=== PATIENT | female | born 1980 | race Caucasian/White ===

== ENCOUNTER 2017-07-27 11:18 | Inpatient (IN) | payer MEDICAID ==
--- NOTE | 2017-07-27 11:36 | Emergency Department Record ---
History of Present Illness - General Chief Complaint: Overdose Stated Complaint: OVERDOSE Time Seen by Provider: 07/27/17 11:21 Source: Patient, Family Mode of Arrival: Ambulatory Limitations: No limitations - History of Present Illness Initial Comments: 37 yo female presents stating she is in withdrawal. She was dropped off by her father who promptly walked out stating he is through with her. He expressed to the help desk rep she is a heroin addict and he can no longer help her. He states she has not had heroin in two days. She admits to drinking alcohol today as well. She states she has been on heroin for 4 years on and off. She has been in rehabilitation in the past. She currently denies suicidal thoughts. She currently denies other drunks. She states she hurt her ankle a couple days ago and it hurts. Complaint: Other (Withdrawal) -: Hour(s) - Jerome Coma Scale Eye Response: (4) Open spontaneously Motor Response: (6) Obeys commands Verbal Response: (5) Oriented Jerome Total: 15 - Detail Intent: Other (Denies suicidal ideations or intentional overdose) How Overdose Was Discovered: Called family/friend (Brought by father due to "acting out") Context: Accidental Overdose: Other (Wanted to sleep, did not sleep last night due to withdrawal) Context: Intentional Overdose: Drug/ETOH problems Associated Symptoms: Other (Chronic substance abuse) Treatments Prior to Arrival: None - Related Data Allergies Allergy/AdvReac Type Severity Reaction Status Date / Time naproxen [From Naprosyn] Allergy HIVES Verified 08/01/15 12:20 Review of Systems Constitutional: Denies: Chills, Fever, Malaise Eyes: Denies: Eye discharge, Eye pain, Photophobia, Vision change ENT: Denies: Congestion, Throat pain Respiratory: Denies: Cough, Dyspnea, Hemoptysis, Stridor, Wheezes Cardiovascular: Denies: Chest pain, Palpitations, Syncope Endocrine: Denies: Fatigue Gastrointestinal: Reports: Nausea. Denies: Diarrhea, Vomiting Genitourinary: Denies: Dysuria, Urgency Musculoskeletal: Reports: As per HPI, Arthralgia, Myalgia. Denies: Back pain Skin: Denies: Bruising, Change in color, Rash Neurological: Denies: Confusion, Headache, Numbness, Weakness Psychiatric: Reports: Anxiety. Denies: Homicidal thoughts, Suicidal thoughts Hematological/Lymphatic: Denies: Blood Clots, Easy bleeding, Easy bruising, Swollen glands Past Medical History - SOCIAL HISTORY Smoking Status: Current every day smoker - RESPIRATORY Hx Respiratory Disorders: No - CARDIOVASCULAR Comment:: murmur - NEURO Hx Neuro Disorders: No - GI Hx GI Disorders: No - Hx Genitourinary Disorders: No - ENDOCRINE Hx Diabetes: No Hx Thyroid Disease: Yes (benign cyst) - MUSCULOSKELETAL Hx Musculoskeletal Disorders: Yes - PSYCH Hx Anxiety: Yes - HEMATOLOGY/ONCOLOGY Hx Hematology/Oncology Disorders: No Family Medical History Hx Cancer: Grandparents Hx Diabetes: Mother Hx Heart Disease: Grandparents Hx Resp Disorders: Grandparents Physical Exam - General General Appearance: Alert, Oriented x3, Anxious Limitations: No limitations - Head Head exam: Atraumatic, Normocephalic, Normal inspection - Eye Eye exam: Normal appearance, PERRL, EOMI. negative: Conjunctival injection, Scleral icterus - ENT ENT exam: Normal exam Ear exam: Normal external inspection Nasal Exam: Normal inspection Mouth exam: Normal external inspection - Neck Neck exam: Normal inspection, Full ROM. negative: Tenderness - Respiratory Respiratory exam: Normal lung sounds bilaterally. negative: Respiratory distress - Cardiovascular Cardiovascular Exam: Regular rate, Normal rhythm, Normal heart sounds - GI/Abdominal GI/Abdominal exam: Soft. negative: Tenderness - Rectal Rectal exam: Deferred - exam: Deferred - Extremities Extremities exam: Joint swelling - Back Back exam: Reports: Normal inspection - Neurological Neurological exam: Alert, Oriented X3 - Psychiatric Psychiatric exam: Anxious - Skin Skin exam: Abrasion (left palm of hand) Course - Reevaluation(s) Reevaluation #1: The father returned to the ER to provide additional history. He provided history of years of abuse with repeated treatment programs that have failed. She has been disruptive at home since returning the last few days. She has recently been in group home, homeless, again using heroin. He did not witness any suicidal statement or witness any intentional ingestions. 07/27/17 11:51 07/27/17 12:15 The patient is more calm. She still denies suicidal thoughts. She complains of tight lateral ankle pain 07/27/17 12:31 EKG 12:23 NSR rate 82, intervals normal, axis normal, ST normal, LVH. 07/27/17 12:49 The labs were reviewed Chronic anemia HCO3 12 AG 23 Alcohol is 0.208 K is 2.8 TSH is 0.21 UDS is positive for cocaine Tylenol is negative Aspirin is negative 07/27/17 12:50 07/27/17 13:22 I [facility] regarding admission for fluid and electrolyte replacement , monitor blood sugars, withdrawal symptoms due to her polysubstance abuse 07/27/17 17:02 Medical Decision Making - Lab Data Result diagrams: 07/27/17 12:00 07/27/17 12:00 Disposition Disposition: Admit Clinical Impression: Hypokalemia, Heroin abuse, Cocaine abuse, Dehydration, Hypoglycemia Disposition: Still a Patient at [facility] Decision to Admit: Admit from ER Decision to Admit Date: 07/27/17 Decision to Admit Time: 13:12 Condition: (2) Stable Time of Disposition: 13:09 Quality - Quality Measures Quality Measures: N/A - Blood Pressure Screening Does Patient Have Any of the Following: No Blood Pressure Classification: Normal BP Reading Systolic Measurement: 93 Diastolic Measurement: 43 Screening for High Blood Pressure: < Normal BP, F/U Not Required > [[id number]]
[2017-07-27 12:02] LABS: HEMATOCRIT 35.2 % (35.0-47.0); HEMOGLOBIN 11.2 gm/dl (11.6-16.0); MEAN CELL VOLUME 80.7 fl (81-97); MEAN CORPUSCULAR HGB CONC 31.8 g/dl (32-36); MEAN PLATELET VOLUME 9.4 fl (7.4-10.4); PLATELET COUNT 420 K/uL (130-400); RED BLOOD COUNT 4.36 M/uL (3.80-5.40); RED CELL DISTRIBUTION WIDTH 16.5 % (11.5-14.5); WHITE BLOOD COUNT W/O DIFF 10.8 K/uL (4.2-12.2)
[2017-07-27 12:06] LABS: MEAN CORPUSCULAR HEMOGLOBIN 25.6 pg (27-33)
[2017-07-27 12:19] LABS: ANISOCYTOSIS 1+; PLATELET ESTIMATE INCREASED (NORMAL)
[2017-07-27 12:25] LABS: BLOOD UREA NITROGEN 15 mg/dL (6-20); CREATININE 0.6 mg/dL (0.5-0.9); EST GLOMERULAR FILTRATION RATE > 60 mL/min
[2017-07-27 12:26] LABS: TOTAL PROTEIN 7.2 g/dL (6.6-8.7)
[2017-07-27 12:27] LABS: ALCOHOL 0.208 g/dL (0-0.010)
[2017-07-27 12:27] LABS: URINE APPEARANCE CLEAR; URINE BILIRUBIN NEGATIVE (NEGATIVE); URINE BLOOD NEGATIVE (NEGATIVE); URINE COLOR YELLOW; URINE GLUCOSE (UA) NEGATIVE (NEGATIVE); URINE KETONE NEGATIVE (NEGATIVE); URINE LEUKOCYTE ESTERASE NEGATIVE (NEGATIVE); URINE NITRITE NEGATIVE (NEGATIVE); URINE PROTEIN NEGATIVE (NEGATIVE); URINE UROBILINOGEN 0.2 E.U./dL (0.20 - 1.00)
[2017-07-27 12:28] LABS: GLUCOSE,RANDOM 59 mg/dL (74-109)
[2017-07-27] MEDS ORDERED: DEXTROSE 50 % IVP 50 ML DISP.SYRIN IVP ONE (12:28)
[2017-07-27 12:30] LABS: AMPHETAMINE SCREEN URINE NOT DETECTED; BARBITURATE SCREEN URINE NOT DETECTED; BENZODIAZEPINE SCREEN URINE NOT DETECTED; METHADONE SCREEN URINE NOT DETECTED; OPIATE SCREEN URINE NOT DETECTED; THC SCREEN URINE NOT DETECTED; TRICYCLIC ANTIDEPRESSANT SCRN NOT DETECTED
[2017-07-27 12:30] LABS: ALT/SGPT 23 U/L (<33); AST/SGOT 21 U/L (10.0-35.0)
[2017-07-27 12:31] LABS: COCAINE SCREEN URINE DETECTED; METHAMPHETAMINE SCREEN NOT DETECTED; OXYCODONE SCREEN URINE NOT DETECTED; PHENCYCLIDINE SCREEN URINE NOT DETECTED; PROPOXYPHENE SCREEN URINE NOT DETECTED
[2017-07-27 12:31] LABS: ALB/GLOB RATIO 0.9 (1.1-1.8); ALBUMIN 3.4 g/dL (4.0-5.0); ALKALINE PHOSPHATASE 51 U/L (35-104)
[2017-07-27 12:32] LABS: ACETAMINOPHEN < 5.0 ug/mL (10.0-30.0); SALICYLATE < 0.3 mg/dL (2.8-20)
[2017-07-27 12:41] LABS: THYROID STIMULATING HORMONE 0.21 uIU/mL (0.270-4.20)
[2017-07-27] MEDS ORDERED: 0.9 % SODIUM CHLORIDE 1,000 ML BAG IV ONE (12:49)
[2017-07-27] MEDS ORDERED: SOD CHLOR 0.9% WITH KCL 40MEQ 40 MEQ/1,000 ML IV.SOLN IV ONE (12:51)
[2017-07-27] MEDS ORDERED: LORAZEPAM 2 MG/ML VIAL IV ONE (13:07)
[2017-07-27] MEDS ORDERED: ACETAMINOPHEN 1,000 MG/100 ML BTL IVPB ONE (13:07)
[2017-07-27] MEDS ORDERED: 0.9 % SODIUM CHLORIDE 1000ML 1,000 ML IV PRN (14:30)
[2017-07-27] MEDS ORDERED: LORAZEPAM 2 MG/ML VIAL IV PRN (14:30)
[2017-07-27] MEDS ORDERED: FLU VAC QS 2017-18 (INPT, 6MO+) 60MCG/0.5ML IM ONE (15:09)
[2017-07-27] MEDS ORDERED: ONDANSETRON HCL IV 4 MG/2 ML VIAL IVP PRN (16:10)
[2017-07-27] MEDS ORDERED: LOPERAMIDE 2 MG CAPSULE PO PRN (16:10)
[2017-07-27] MEDS ORDERED: POTASSIUM CHL 20MEQ IN 1L NS 20 MEQ/1,000 ML BAG IV PRN (16:18)
[2017-07-27] MEDS: THIAMINE MONONITRATE 100 MG TABLET PO SCH ×2 (16:59→21:47)
[2017-07-27] MEDS: FOLIC ACID 1 MG TABLET PO SCH (16:59)
[2017-07-27] MEDS: CYANOCOBALAMIN (VITAMIN B-12) 100 MCG TABLET PO SCH (16:59)
[2017-07-27] MEDS: HYDROXYZINE PAMOATE 25 MG CAPSULE PO PRN (17:02)
[2017-07-27] MEDS: LORAZEPAM 2 MG/ML VIAL IV PRN (17:33)
[2017-07-27] MEDS ORDERED: IBUPROFEN 600 MG TABLET PO PRN (18:55)
[2017-07-27] MEDS: LIDOCAINE 5% PATCH TOP SCH (19:09)
[2017-07-27] MEDS: LORAZEPAM 0.5 MG TABLET PO PRN ×3 (19:41→23:55)
[2017-07-27 19:44] LABS: BLOOD UREA NITROGEN 13 mg/dL (6-20); CREATININE 0.6 mg/dL (0.5-0.9); EST GLOMERULAR FILTRATION RATE > 60 mL/min; GLUCOSE,RANDOM 175 mg/dL (74-109)
[2017-07-27] MEDS: ACETAMINOPHEN 500 MG TABLET PO PRN (21:38)
[2017-07-28] MEDS ORDERED: CHLORDIAZEPOXIDE 10 MG CAPSULE PO SCH (00:30)
[2017-07-28] MEDS: IBUPROFEN 600 MG TABLET PO PRN ×4 (01:12→21:15)
[2017-07-28] MEDS: LORAZEPAM 2 MG/ML VIAL IV PRN ×3 (01:12→19:42)
[2017-07-28] MEDS: HYDROXYZINE PAMOATE 25 MG CAPSULE PO PRN ×2 (03:49→20:16)
[2017-07-28] MEDS: ACETAMINOPHEN 500 MG TABLET PO PRN ×2 (03:49→19:32)
[2017-07-28] MEDS: LORAZEPAM 0.5 MG TABLET PO PRN ×3 (06:41→23:39)
[2017-07-28] MEDS ORDERED: KETOROLAC 30 MG/ML VIAL IVP ONE (07:17)
[2017-07-28 07:24] LABS: BLOOD UREA NITROGEN 8 mg/dL (6-20); CREATININE 0.4 mg/dL (0.5-0.9); EST GLOMERULAR FILTRATION RATE > 60 mL/min; GLUCOSE,RANDOM 138 mg/dL (74-109)
[2017-07-28 07:55] LABS: BLOOD UREA NITROGEN 8 mg/dL (6-20); CREATININE 0.4 mg/dL (0.5-0.9); EST GLOMERULAR FILTRATION RATE > 60 mL/min
[2017-07-28 07:56] LABS: TOTAL PROTEIN 7.1 g/dL (6.6-8.7)
[2017-07-28 07:59] LABS: GLUCOSE,RANDOM 138 mg/dL (74-109)
[2017-07-28 08:01] LABS: ALBUMIN 3.4 g/dL (4.0-5.0); ALKALINE PHOSPHATASE 49 U/L (35-104); ALT/SGPT 21 U/L (<33); AST/SGOT 21 U/L (10.0-35.0)
[2017-07-28 08:02] LABS: ALB/GLOB RATIO 0.9 (1.1-1.8)
--- NOTE | 2017-07-28 09:04 | RADIOLOGY REPORT ---
DATE: 07/27/2017 at 1322 hours. EXAM: RIGHT ANKLE. HISTORY: Lateral pain. Combative. TECHNIQUE: Three views of the right ankle were obtained. COMPARISON: None. FINDINGS: An IV is present within the lower leg anterior to the distal tibia. The bones appear intact. There is no visible acute fracture or dislocation. The ankle mortis is unremarkable. IMPRESSION: NO ACUTE RIGHT ANKLE PATHOLOGY. JOB NUMBER: [id number] [facility]
[2017-07-28] MEDS: THIAMINE MONONITRATE 100 MG TABLET PO SCH ×2 (09:38→21:15)
[2017-07-28] MEDS: CYANOCOBALAMIN (VITAMIN B-12) 100 MCG TABLET PO SCH (09:38)
[2017-07-28] MEDS: FOLIC ACID 1 MG TABLET PO SCH (09:38)
--- NOTE | 2017-07-28 10:50 | History & Physical ---
History of Present Illness - Date of Service Date of Service for History & Physical: 07/28/17 - History of Present Illness Admitting Diagnosis: Cocaine, Heroin abuse, hypokalemia, hypoglycemia, dehydration, alcohol intoxication History of Present Illness: 37yo female with CC of intoxication brought in by her father. She has long history of substance abuse with heroin. Patient brought to the ED by her father for suspected intoxication and possibly withdrawal from heroin. He said he found her in the garage with almost 2/3 of a [place] drink mix gone. While in the ED, patient had blood alcohol level of 0.2 and toxicology screen positive for cocaine no opiates. She admitted she had last used heroin 2 days prior and cocaine the previous day. EKG showed LVH with NSR. pressure was 94/ 36mmhg. CBC was unremarkable. CMP showed several electrolyte abnormalities. Her potassium was 2.8, bicarb was 12 and AG of 23. blood glucose was 59. She was started on IV fluids with potassium replacement, and dextrose. She complained of hurting her ankle several days prior and had a negative XR while in the ED. She was admitted for hypokalemia and acute ETOH intoxication. 07/28/17- Patient is coherent today and resting in bed. She is oriented to person , place and time. She can accurately recall who brought her to the ED yesterday and why. She is complaining of right lateral ankle pain. She is able to walk on the ankle and use it to turn herself over in bed. She states she last used heroin 3 days ago and cocaine 2 days ago and alcohol yesterday. She has been through many rehab programs for her heroin addiction. Up until yesterday, she was living with her parents, however, due to her behavior they no longer wish for her to reside with them. She denies any suicidal ideation or thoughts of self harm. She is open to going to a detoxification center and possibly following that with a longer inpatient rehab stay. Travel Screening - Travel/Exposure Within Last 30 Days Have you traveled within the last 30 days?: No - Travel/Exposure Within Last Year Have you traveled outside the [place] in the last year?: No - Additonal Travel Details Have you been exposed to anyone with a communicable illness?: No - Travel Symptoms Symptom Screening: None Review of Systems Constitutional: Denies: Chills, Fever, Malaise Eyes: Denies: Eye discharge, Eye pain, Photophobia, Vision change ENT: Denies: Congestion, Throat pain Respiratory: Denies: Cough, Dyspnea, Hemoptysis, Stridor, Wheezes Cardiovascular: Denies: Chest pain, Palpitations, Syncope Endocrine: Denies: Fatigue Gastrointestinal: Denies: Diarrhea, Nausea, Vomiting Genitourinary: Denies: Dysuria, Urgency Musculoskeletal: Reports: As per HPI, Arthralgia (right ankle), Myalgia. Denies : Back pain Skin: Denies: Bruising, Change in color, Rash Neurological: Denies: Confusion, Headache, Numbness, Weakness Psychiatric: Denies: Auditory hallucinations, Homicidal thoughts, Suicidal thoughts, Visual hallucinations Hematological/Lymphatic: Denies: Blood Clots, Easy bleeding, Easy bruising, Swollen glands Past Medical History - SOCIAL HISTORY Smoking Status: Current every day smoker - RESPIRATORY Hx Respiratory Disorders: No - CARDIOVASCULAR Comment:: murmur - NEURO Hx Neuro Disorders: No - GI Hx GI Disorders: No - Hx Genitourinary Disorders: No - ENDOCRINE Hx Diabetes: No Hx Thyroid Disease: Yes (benign cyst) - MUSCULOSKELETAL Hx Musculoskeletal Disorders: Yes - PSYCH Hx Anxiety: Yes - HEMATOLOGY/ONCOLOGY Hx Hematology/Oncology Disorders: No Family Medical History Hx Cancer: Grandparents Hx Diabetes: Mother Hx Heart Disease: Grandparents Hx Resp Disorders: Grandparents H&P Meds/Allergies - Allergies Allergies: Allergies Allergy/AdvReac Type Severity Reaction Status Date / Time naproxen [From Naprosyn] Allergy HIVES Verified 08/01/15 12:20 - Active Medications Active Medications: Current Medications Acetaminophen (Tylenol 500mg Tab) 500 mg PO Q6H PRN PRN Reason: PAIN/TEMP Last Admin: 07/28/17 03:49 Dose: 500 mg Chlordiazepoxide HCl (Librium) 10 mg PO ONCE [facility] Last Admin: 07/28/17 00:32 Dose: 10 mg Cyanocobalamin (Vitamin B-12) 100 mcg PO DAILY [facility] Last Admin: 07/28/17 09:38 Dose: 100 mcg Folic Acid () 1 mg PO DAILY [facility] Last Admin: 07/28/17 09:38 Dose: 1 mg Hydroxyzine Pamoate (Vistaril) 25 mg PO Q6H PRN PRN Reason: ITCHING Last Admin: 07/28/17 03:49 Dose: 25 mg Potassium Chloride/Sodium Chloride ( Potassium Chl 20meq/) 20 meq in 1,000 mls @ 125 mls/hr IV Q8H PRN PRN Reason: fluids Last Infusion: 07/28/17 10:15 Dose: 125 mls/hr Ibuprofen (Motrin 600mg) 600 mg PO Q6H PRN PRN Reason: Pain - General Last Admin: 07/28/17 09:38 Dose: 600 mg Lidocaine (Lidoderm) 1 each TOP DAILY [facility] Last Admin: 07/27/17 19:09 Dose: 1 each Loperamide HCl (Immodium) 2 mg PO Q4H PRN PRN Reason: Diarrhea Lorazepam (Ativan) 1 mg IV Q4H PRN PRN Reason: ANXIETY Last Admin: 07/28/17 01:12 Dose: 1 mg Lorazepam (Ativan) 1 mg PO Q2H PRN PRN Reason: Agitation Last Admin: 07/28/17 06:41 Dose: 1 mg Ondansetron HCl (Zofran) 4 mg IVP Q8H PRN PRN Reason: NAUSEA Last Admin: 07/27/17 16:59 Dose: 4 mg Physical Exam - Vital Signs Vital Signs: Vital Signs - Last 24 Hrs Temp Pulse Resp BP BP BP Pulse Ox 07/28/17 07:00 96 H 24 143/60 94 L 07/28/17 05:00 96.8 F L 90 30 H 122/50 98 07/28/17 03:30 97.7 F 85 30 H 152/55 97 07/28/17 01:30 98.5 F 92 H 24 131/50 97 07/27/17 23:25 98.6 F 98 H 24 121/61 97 07/27/17 21:00 98.7 F 24 130/67 95 07/27/17 19:30 98 F 91 H 26 H 109/50 96 07/27/17 18:14 97.7 F 95/47 07/27/17 16:37 95 H 22 91/37 93 L 07/27/17 16:00 28 H 07/27/17 15:00 97.7 F 94 H 22 101/37 98/38 93 L - General General Appearance: Alert, Oriented x3, No acute distress Limitations: No limitations - Head Head exam: Atraumatic, Normocephalic, Normal inspection - Eye Eye exam: Normal appearance, PERRL, EOMI. negative: Conjunctival injection, Scleral icterus - ENT ENT exam: Normal exam Ear exam: Normal external inspection Nasal Exam: Normal inspection Mouth exam: Normal external inspection - Neck Neck exam: Normal inspection, Full ROM. negative: Tenderness - Respiratory Respiratory exam: Normal lung sounds bilaterally. negative: Respiratory distress - Cardiovascular Cardiovascular Exam: Regular rate, Normal rhythm, Normal heart sounds - GI/Abdominal GI/Abdominal exam: Soft, Normal bowel sounds. negative: Tenderness - Rectal Rectal exam: Deferred - exam: Deferred - Extremities Extremities exam: Joint swelling (minimal swelling right lateral malleolus), Normal capillary refill, Other (bruising of the right perez due to IV site). negative: Calf tenderness - Back Back exam: Reports: Normal inspection - Neurological Neurological exam: Alert, Oriented X3 - Psychiatric Psychiatric exam: Anxious - Skin Skin exam: Abrasion (left palm of hand) Results - Labs Result Diagrams: 07/27/17 12:00 07/28/17 07:00 Labs Last 24 Hours: Laboratory Results - last 24 hr 07/27/17 07/27/17 07/28/17 14:30 19:10 07:00 Sodium Cancelled 135 L 138 Potassium Cancelled 4.0 3.7 Chloride Cancelled 103 103 Carbon Dioxide Cancelled 19.0 L 25.0 Anion Gap Cancelled 13.0 10.0 BUN Cancelled 13 8 Creatinine Cancelled 0.6 0.4 L Estimated GFR Cancelled > 60 > 60 Random Glucose Cancelled 175 H 138 H Calcium Cancelled 8.3 L 8.3 L Total Bilirubin AST ALT Alkaline Phosphatase Total Protein Albumin Globulin Albumin/Globulin Ratio Ethyl Alcohol 0.010 07/28/17 07:00 Sodium 138 Potassium 3.7 Chloride 103 Carbon Dioxide 25.0 Anion Gap 10.0 BUN 8 Creatinine 0.4 L Estimated GFR > 60 Random Glucose 138 H Calcium 8.3 L Total Bilirubin 0.60 AST 21 ALT 21 Alkaline Phosphatase 49 Total Protein 7.1 Albumin 3.4 L Globulin 3.7 Albumin/Globulin Ratio 0.9 L Ethyl Alcohol - Imaging and Cardiology right ankle XR Status: Report reviewed (no acute bony or soft tissue pathology) VTE H&P Assessment - Risk for VTE Risk for VTE: Yes Risk Level: Moderate Risk Assessment Date: 07/28/17 Risk Assessment Time: 10:58 VTE Orders Placed or Will Be Placed: Yes Plan - Detailed Diagnosis and Plan (1) Electrolyte abnormality Current Visit: Yes Status: Acute Base Code: E87.8 - OTH DISORDERS OF ELECTROLYTE AND FLUID BALANCE, NEC Comment: 07/28/17-resolved. potassium of 2.8 on arrival has normalized at 3.7. Bicarb of 25 this morning with AG of 10. Blood glucose stagble between 138-175. -discontinue IV fluids. -tolerating regular diet -discontinue tele (2) Substance abuse Current Visit: Yes Status: Acute Base Code: F19.10 - OTHER PSYCHOACTIVE SUBSTANCE ABUSE, UNCOMPLICATED Comment: 07/28/17- chronic. She admits to many years of heroin, cocaine and alcohol abuse. She has been through many rehab centers. Parents feel there is no more they can do for her. -[facility] [place] to see about transfer for subacute detoxification. They also do planning for further inpatient stay if necessary after 72H. [facility] in [place] also contacted, however, they don't do intakes over the weekend. (3) Alcohol intoxication Current Visit: Yes Status: Acute Qualifiers: Complication of substance-induced condition: uncomplicated Qualified Code(s ): F10.920 - Alcohol use, unspecified with intoxication, uncomplicated Base Code: F10.929 - ALCOHOL USE, UNSPECIFIED WITH INTOXICATION, UNSPECIFIED Comment: 07/28/17- resolved. repeat ETOH level was 0.010. She reports one day of alcohol drinking. Has not been consuming on a regular basis since living at her parents' house. -started oral replacement of thiamine, B12 and folic acid (4) Right ankle pain Current Visit: Yes Status: Acute Qualifiers: Chronicity: acute Qualified Code(s): M25.571 - Pain in right ankle and joints of right foot Base Code: M25.571 - PAIN IN RIGHT ANKLE AND JOINTS OF RIGHT FOOT Comment: - patient with pain out of proporation to exam findings. XR showed no acute bony or soft tissue abnormality. She is neurovascularly intact distally. She is beraing weight on the ankle and using it to turn herself in bed. Her pain has not been controlled with tylenol, ibuprofen, toradol, lidocaine patch, wrap, ice, heat. -will continue with the conservative management of ankle sprain. no opioid pain medication. (5) DVT prophylaxis Current Visit: Yes Status: Acute Base Code: [id number] - Comment: 07/28/17- patient is moderate risk for DVT. -lovenox 40mg SQ daily for prophylaxis (6) Full code status Current Visit: Yes Status: Acute Base Code: Z78.9 - OTHER SPECIFIED HEALTH STATUS Comment: 07/28/17- patient is full code
[2017-07-28] MEDS: LIDOCAINE 5% PATCH TOP SCH (11:21)
[2017-07-28] MEDS ORDERED: NICOTINE 21 MG/24 HOUR PATCH TD SCH (15:15)
[2017-07-28] MEDS ORDERED: LORAZEPAM 2 MG/ML VIAL IV ONE (15:39)
[2017-07-29] MEDS: ACETAMINOPHEN 500 MG TABLET PO PRN ×2 (01:30→07:46)
[2017-07-29] MEDS: LORAZEPAM 0.5 MG TABLET PO PRN ×5 (01:40→09:47)
[2017-07-29] MEDS: HYDROXYZINE PAMOATE 25 MG CAPSULE PO PRN (03:04)
[2017-07-29] MEDS: IBUPROFEN 600 MG TABLET PO PRN ×2 (03:41→09:26)
[2017-07-29] MEDS ORDERED: CHLORDIAZEPOXIDE 25 MG CAPSULE PO SCH ×2 (06:00→10:01)
[2017-07-29 07:07] LABS: BLOOD UREA NITROGEN 8 mg/dL (6-20); CREATININE 0.4 mg/dL (0.5-0.9); EST GLOMERULAR FILTRATION RATE > 60 mL/min; GLUCOSE,RANDOM 143 mg/dL (74-109)
[2017-07-29] MEDS: LIDOCAINE 5% PATCH TOP SCH (09:26)
[2017-07-29] MEDS: CYANOCOBALAMIN (VITAMIN B-12) 100 MCG TABLET PO SCH (09:26)
[2017-07-29] MEDS: THIAMINE MONONITRATE 100 MG TABLET PO SCH (09:26)
[2017-07-29] MEDS: FOLIC ACID 1 MG TABLET PO SCH (09:26)
--- NOTE | 2017-07-29 11:56 | Discharge Summary ---
Providers Discharge Summary Date: 07/29/17 Date of admission: 07/27/17 14:23 Expected Date of Discharge: 07/29/17 Attending physician: JILLIAN DEAN Physical Exam - Vital Signs Vital Signs: Vital Signs - Last 24 Hrs Temp Pulse Resp BP BP BP Pulse Ox 07/29/17 10:32 99 F 140/61 07/29/17 08:59 99 F 95 H 26 H 140/61 94 L 07/29/17 08:45 91 H 20 07/29/17 06:22 98.9 F 91 H 20 124/70 97 07/29/17 03:00 98.7 F 96 H 20 159/90 98 07/29/17 01:00 98.4 F 90 22 131/67 99 07/28/17 23:00 98.6 F 100 H 20 140/80 97 07/28/17 19:00 104 H 28 H 145/74 94 L 07/28/17 17:00 86 22 126/68 94 L 07/28/17 13:00 98.6 F 90 20 122/67 97 - General General Appearance: Alert, Oriented x3, No acute distress Limitations: No limitations - Head Head exam: Atraumatic, Normocephalic, Normal inspection - Eye Eye exam: Normal appearance, PERRL, EOMI. negative: Conjunctival injection, Scleral icterus - ENT ENT exam: Normal exam Ear exam: Normal external inspection Nasal Exam: Normal inspection Mouth exam: Normal external inspection - Neck Neck exam: Normal inspection, Full ROM. negative: Tenderness - Respiratory Respiratory exam: Normal lung sounds bilaterally. negative: Respiratory distress - Cardiovascular Cardiovascular Exam: Regular rate, Normal rhythm, Normal heart sounds - GI/Abdominal GI/Abdominal exam: Soft, Normal bowel sounds. negative: Tenderness - Rectal Rectal exam: Deferred - exam: Deferred - Extremities Extremities exam: Joint swelling (minimal swelling right lateral malleolus), Normal capillary refill, Other (bruising of the right perez due to IV site). negative: Calf tenderness - Back Back exam: Reports: Normal inspection - Neurological Neurological exam: Alert, Oriented X3 - Psychiatric Psychiatric exam: Anxious. negative: Homicidal ideation, Suicidal ideation - Skin Skin exam: Abrasion (left palm of hand) Hospitalization - Hospitalization Admission Diagnosis: Cocaine, Heroin abuse, hypokalemia, hypoglycemia, dehydration, alcohol intoxication - Problem List/Discharge Diagnosis (1) Substance abuse Status: Acute Base Code: F19.10 - OTHER PSYCHOACTIVE SUBSTANCE ABUSE, UNCOMPLICATED Comment: 07/29/17- chronic. She admits to many years of heroin, cocaine and alcohol abuse. She has been through many rehab centers. Parents feel there is no more they can do for her. -contacted the [facility] in [place] on 07/28 to see about transfer for subacute 72 hour detoxification. She was denied because she had told the intake personnel she was having SI. Detox center denied her due to this. Nursing asked patient if she was having SI and she had stated at that time she "wanted to be done" with it all. Nursing staff had notified me and we began the process of isaak /cert to inpatient psychiatry at [facility]. They had denied her at that time because they felt her CIWA score was too high at 10. She was kept overnight and CIWA was repeated throughout the evning. She continually scored between 2-5. -This morning, 07/29/17,myself and Dr. Landry interviewed the patient. I asked her directly if she was having thoughts of killing herself and she clearly stated no. I asked if she had been thinking of that yesterday and she stated she had only told the detox intake person over the phone that she was having SI because she thought it would help her get in to the detox center. Dr. Landry was present as was nursing and MA. I then asked very clearly if she was having any thoughts of harming herself or plans to kill herself and she emphatically replied no. For that reason, neither Dr. Landry, nor myself, felt we would fill out an isaak/cert on patient. Medically, she was >72H since last drink and 5 days since last heroin use. Her labs had normalized, blood pressure was controlled, and she was scoring 2-5 on CIWA scale therefore she was deemed medically stable for discharge. Case management asked her if she wanted us to find inpatient rehab for her but patient declined. Shelly did provide patient with resources should she change her mind as well as information for [facility]. Patient's mother presented to pick her up. She was frusturated that nothing more could be done for her daughter. I did explain that although I did not feel I could isaak/ cert her, patient could voluntarily present to [facility] for evaluation at any time. Mom stated she was going to take patient directly there. I made mother aware that patient was given resources for substance abuse. I asked mother to call with any other questions or concerns (2) Electrolyte abnormality Status: Acute Base Code: E87.8 - OTH DISORDERS OF ELECTROLYTE AND FLUID BALANCE, NEC Comment: 07/29/17-resolved. potassium 3.8, sodium 137, bicarb of 22. (3) Alcohol intoxication Status: Acute Discharge Diagnosis: Complication of substance-induced condition: uncomplicated Qualified Code(s ): F10.920 - Alcohol use, unspecified with intoxication, uncomplicated Base Code: F10.929 - ALCOHOL USE, UNSPECIFIED WITH INTOXICATION, UNSPECIFIED Comment: 07/29/17- resolved. repeat ETOH level was 0.010. She reports one day of alcohol drinking. Has not been consuming on a regular basis since living at her parents' house. CIWA scoring between 2-5 last night. >72H since last drink. -she received oral replacement of thiamine, B12 and folic acid -SW gave patient many resources for substance abuse (4) Right ankle pain Status: Acute Discharge Diagnosis: Chronicity: acute Qualified Code(s): M25.571 - Pain in right ankle and joints of right foot Base Code: M25.571 - PAIN IN RIGHT ANKLE AND JOINTS OF RIGHT FOOT Comment: - XR showed no acute bony or soft tissue abnormality. She is neurovascularly intact distally. She is bearing weight on the ankle and using it to turn herself in bed. Her pain has not been controlled with tylenol, ibuprofen, toradol, lidocaine patch, wrap, ice, heat. -will continue with the conservative management of ankle sprain. -patient given aircast for immobilization and crutches. She was instructed to avoid weight bearing for several days and to gradually increase her activity level. (5) DVT prophylaxis Status: Acute Base Code: [id number] - Comment: 07/29/17- patient is moderate risk for DVT. -lovenox 40mg SQ daily for prophylaxis (6) Full code status Status: Acute Base Code: Z78.9 - OTHER SPECIFIED HEALTH STATUS Comment: 07/29- patient is full code - Hospitalization Course Disposition: Home, Self-Care Hospital Course: 37yo female with CC of intoxication brought in by her father. She has long history of substance abuse with heroin. Patient brought to the ED by her father for suspected intoxication and possibly withdrawal from heroin. He said he found her in the garage with almost 2/3 of a [employer] drink mix gone. While in the ED, patient had blood alcohol level of 0.2 and toxicology screen positive for cocaine no opiates. She admitted she had last used heroin 2 days prior and cocaine the previous day. EKG showed LVH with NSR. pressure was 94/ 36mmhg. CBC was unremarkable. CMP showed several electrolyte abnormalities. Her potassium was 2.8, bicarb was 12 and AG of 23. blood glucose was 59. She was started on IV fluids with potassium replacement, and dextrose. She complained of hurting her ankle several days prior and had a negative XR while in the ED. She was admitted for hypokalemia and acute ETOH intoxication. 07/28/17- Patient is coherent today and resting in bed. She is oriented to person , place and time. She can accurately recall who brought her to the ED yesterday and why. She is complaining of right lateral ankle pain. She is able to walk on the ankle and use it to turn herself over in bed. She states she last used heroin 3 days ago and cocaine 2 days ago and alcohol yesterday. She has been through many rehab programs for her heroin addiction. Up until yesterday, she was living with her parents, however, due to her behavior they no longer wish for her to reside with them. She denies any suicidal ideation or thoughts of self harm. She is open to going to a detoxification center and possibly following that with a longer inpatient rehab stay. 07/29/17-Patient laying in bed but quickly sits up and becomes alert once I turned on lights. She is oriented to person, place and time, she continues to report right ankle pain. Says the ibuprofen and tylenol take the edge off but nothing really helps. Dr. Landry and myself asked patient if she was having thoughts of killing herself. She denied today that she had any thoughts of suicide. I asked her if she was having those thoughts yesterday. She says no. I then asked her why she had told the intake personnel for the Recovery [facility] that she was. She responded that she thought it would help her get in to the detox center and she really wanted to go. I asked her a second time if she was having suicidal ideation and she denied. Patient still having mild anxiety/ restlessness, no visible seating, tremor. she denies headache, nausea, hallucinations. She wants to know if she has to stay here. Abnormal Labs: Abnormal Lab Results 07/27/17 07/28/17 07/28/17 Range/Units 19:10 07:00 07:00 Sodium 135 L (136-145) mmol/L Carbon Dioxide 19.0 L (22-29) mmol/L Creatinine 0.4 L 0.4 L (0.5-0.9) mg/dL Random Glucose 175 H 138 H 138 H (74-109) mg/dL Calcium 8.3 L 8.3 L 8.3 L (8.6-10.0) mg/dL Albumin 3.4 L (4.0-5.0) g/dL Albumin/Globulin Ratio 0.9 L (1.1-1.8) 07/29/17 Range/Units 06:19 Sodium (136-145) mmol/L Carbon Dioxide (22-29) mmol/L Creatinine 0.4 L (0.5-0.9) mg/dL Random Glucose 143 H (74-109) mg/dL Calcium (8.6-10.0) mg/dL Albumin (4.0-5.0) g/dL Albumin/Globulin Ratio (1.1-1.8) Condition at Discharge: (2) Stable Discharge Medications - Discharge Medications Prescriptions: Durable Medical Equipment [DME] 1 unit .ROUTE ASDIR #1 unit Home Medications: Ambulatory Orders Durable Medical Equipment [DME] 1 unit .ROUTE ASDIR #1 unit 07/29/17 [Last Taken Unknown] Discharge Plan - Discharge Instructions Activity at Discharge: Resume Usual Activities As Tolerated (use air cast and crutches for 3-5 days and then gradually increase activity ) Additional Instructions: Crisis Services at [facility] may be able to evaluate you for voluntary admission to an inpatient psychiatric facility. They can be reached at . Call [phone] for information on substance abuse treatment. [facility] Substance Abuse Access can be reached at [phone]. Please see other resources given to you at discharge. Quality Measures - Quality Measures Quality Measures: Documentation of Current Medications in Medical Record, Screening for High Blood Pressure and F/U Documented - Current Medications Quality Measure: Measure #130: Documentation of Current Medications Documentation of Current Medications: <Current Medications Documented/Reviewed> [G1149] - Blood Pressure Screening Quality Measure: Screening for High Blood Pressure and Follow-Up Documented Does Patient Have Any of the Following: No Blood Pressure Classification: Hypertensive Reading Systolic Measurement: 140 Diastolic Measurement: 61 Screening for High Blood Pressure: < First Hypertensive BP, F/U Documented > [ G8950] First Hypertensive Follow-up Interventions: Lifestyle modifications. Lifestyle Modification: Moderation in alcohol (ETOH) consumption - Elder Abuse Suspicion Index EASI Reference Information: Isi HEART, Mckinley C, Jossy D, Rossy Stone.Development and validation of a tool to assist physicians identification of elder abuse: The Elder Abuse Suspicion Index (EASI ). Journal of Elder Abuse and Neglect, 2008; 20 (3): 276-300.
== END 2017-07-29 13:08 | disposition home or self-care (01) | DRG 641 ==
LOC: ER 11:18 → MEDSURG 14:23 → OBSVTOIN 14:23
PROVIDERS: ADMIT Internal Medicine; ATTEND Internal Medicine
DX: E87.6 Hypokalemia (principal); E86.0 Dehydration; E87.8 Other disorders of electrolyte and fluid balance, not elsewhere classified; E04.1 Nontoxic single thyroid nodule; M25.571 Pain in right ankle and joints of right foot; F10.920 Alcohol use, unspecified with intoxication, uncomplicated; F19.10 Other psychoactive substance abuse, uncomplicated; F14.10 Cocaine abuse, uncomplicated; Z72.89 Other problems related to lifestyle
CPT/HCPCS: 36416; 80048; 80053; 80305; 80320; 80329; 81003; 82948; 83735; 84443; 84703; 85027; 90686; 93005; 93010; 96365; 96366; 96368; 96375; 99223; 99239; 99253; 99285; J1885; J2405

== ENCOUNTER 2019-01-30 14:06 | Emergency (ER) | payer MEDICAID ==
[2019-01-30] MEDS ORDERED: Diph,Pert(Acell),Tet Vac 0.5 ML SYR IM ONE (15:06)
[2019-01-30] MEDS ORDERED: HYDROCODONE/APAP 7.5/325MG TABLET PO ONE (15:15)
[2019-01-30] MEDS ORDERED: CEPHALEXIN 500 MG CAPSULE PO STA (16:51)
--- NOTE | 2019-01-30 16:52 | Emergency Department Record ---
History of Present Illness - General Chief Complaint: Laceration(s) Stated Complaint: LACERATION ON LT LEG Time Seen by Provider: 01/30/19 15:06 Source: Patient Mode of Arrival: Wheelchair Limitations: No limitations - History of Present Illness Initial Commments: pt kicked a fence post and slipped and cut her leg. Onset/Timin -: Minutes(s) Extremity Location: Left: Lower leg Place: Outdoors Context: Accidental - [place] Coma Scale Eye Response: (4) Open spontaneously Motor Response: (6) Obeys commands Verbal Response: (5) Oriented [place] Total: 15 - Related Data Home Medications Medication Instructions Recorded Confirmed Last Taken Escitalopram Oxalate [Lexapro] 20 mg PO DAILY 01/30/19 01/30/19 01/30/19 Previous Rx's Medication Instructions Recorded Cephalexin [Keflex] 500 mg PO TID #20 cap 01/30/19 Hydrocodone/Acetaminophen [[place] 1 each PO Q6HR #10 tablet 01/30/19 5-325 Tablet] Allergies Allergy/AdvReac Type Severity Reaction Status Date / Time naproxen [From Naprosyn] Allergy HIVES Verified 08/01/15 12:20 Travel Screening - Travel/Exposure Within Last 30 Days Have you traveled within the last 30 days?: No - Travel/Exposure Within Last Year Have you traveled outside the [place] in the last year?: No - Additonal Travel Details Have you been exposed to anyone with a communicable illness?: No - Travel Symptoms Symptom Screening: None Review of Systems Reviewed: No additional complaints except as noted below Constitutional: Reports: As per HPI. Denies: Chills, Fever, Malaise, Night sweats, Weakness, Weight change Eyes: Reports: As per HPI. Denies: Eye discharge, Eye pain, Photophobia, Vision change ENT: Reports: As per HPI. Denies: Congestion, Dental pain, Ear pain, Epistaxis, Hearing loss, Throat pain Respiratory: Reports: As per HPI. Denies: Cough, Dyspnea, Hemoptysis, Stridor, Wheezes Cardiovascular: Reports: As per HPI. Denies: Arrhythmia, Chest pain, Dyspnea on exertion, Edema, Murmurs, Orthopnea, Palpitations, Paroxysmal nocturnal dyspnea, Rheumatic Fever, Syncope Endocrine: Reports: As per HPI. Denies: Fatigue, Heat or cold intolerance, Polydipsia, Polyuria Gastrointestinal: Reports: As per HPI. Denies: Abdominal pain, Constipation, Di arrhea, Hematemesis, Hematochezia, Melena, Nausea, Vomiting Genitourinary: Reports: As per HPI. Denies: Abnormal menses, Discharge, Dyspareunia, Dysuria, Frequency, Hematuria, Incontinence, Retention, Urgency Musculoskeletal: Reports: As per HPI. Denies: Arthralgia, Back pain, Gout, Joint swelling, Myalgia, Neck pain Skin: Reports: As per HPI. Denies: Bruising, Change in color, Change in hair/nails, Lesions, Pruritus, Rash Neurological: Reports: As per HPI. Denies: Abnormal gait, Confusion, Headache, Numbness, Paresthesias, Seizure, Tingling, Tremors, Vertigo, Weakness Psychiatric: Reports: As per HPI. Denies: Anxiety, Auditory hallucinations, Depression, Homicidal thoughts, Suicidal thoughts, Visual hallucinations Hematological/Lymphatic: Reports: As per HPI. Denies: Anemia, Blood Clots, Easy bleeding, Easy bruising, Swollen glands Past Medical History - SOCIAL HISTORY Smoking Status: Current every day smoker Alcohol Use: None Drug Use: None - RESPIRATORY Hx Respiratory Disorders: No - CARDIOVASCULAR Hx Cardio Disorders: No Comment:: murmur - NEURO Hx Neuro Disorders: No - GI Hx GI Disorders: No - Hx Genitourinary Disorders: No - ENDOCRINE Hx Endocrine Disorders: Yes Hx Diabetes: No Hx Thyroid Disease: Yes (benign cyst) - MUSCULOSKELETAL Hx Musculoskeletal Disorders: Yes - PSYCH Hx Psych Problems: Yes Hx Suicide Attempt: Yes - HEMATOLOGY/ONCOLOGY Hx Hematology/Oncology Disorders: No Family Medical History Any Significant Family History?: No Hx Cancer: Grandparents Hx Diabetes: Mother Hx Heart Disease: Grandparents Hx Resp Disorders: Grandparents Physical Exam - General General Appearance: Alert, Oriented x3, Cooperative, No acute distress - Head Head exam: Normal inspection - Eye Eye exam: Normal appearance, PERRL, EOMI Pupils: Normal accommodation - ENT ENT exam: Normal exam, Mucous membranes moist, Normal external ear exam, Normal orophraynx Ear exam: Normal external inspection. negative: External canal tenderness Nasal Exam: Normal inspection. negative: Discharge, Sinus tenderness Mouth exam: Normal external inspection, Tongue normal Teeth exam: Normal inspection. negative: Dental caries Throat exam: Normal inspection. negative: Tonsillar erythema, Tonsillar exudate - Neck Neck exam: Normal inspection, Full ROM. negative: Tenderness - Respiratory Respiratory exam: Normal lung sounds bilaterally. negative: Respiratory distress - Cardiovascular Cardiovascular Exam: Regular rate, Normal rhythm, Normal heart sounds - GI/Abdominal GI/Abdominal exam: Soft, Normal bowel sounds. negative: Tenderness - Rectal Rectal exam: Deferred - exam: Deferred - Extremities Extremities exam: Normal inspection, Full ROM, Normal capillary refill. negative: Tenderness - Back Back exam: Reports: Normal inspection, Full ROM. Denies: Muscle spasm, Rash noted, Tenderness - Neurological Neurological exam: Alert, CN II-XII intact, Normal gait, Oriented X3 - Psychiatric Psychiatric exam: Normal affect, Normal mood - Skin Skin exam: Dry, Intact, Normal color, Warm Type of lesion: Laceration Distribution of rash: LLE Course Vital Signs 01/30/19 14:14 Temperature 98.6 F Pulse Rate 101 H Respiratory 24 Rate Blood Pressure 148/101 Pulse Ox 98 - Reevaluation(s) Reevaluation #1: 01/30/19 16:52 d/w dr lucy mcintyre who will see pt in f/u Disposition Disposition: Discharge Clinical Impression: Laceration of leg not thigh, complicated Qualifiers: Encounter type: initial encounter Laterality: left Qualified Code(s): S81.812A - Laceration without foreign body, left lower leg, initial encounter Disposition: Home, Self-Care Condition: (1) Good Instructions: Laceration (ED) Additional Instructions: follow up with dr mcintyre on saturday. call the office on saturday. elevate leg. sutures out in 12 days Prescriptions: Hydrocodone/Acetaminophen [[place] 5-325 Tablet] 1 each PO Q6HR #10 tablet Cephalexin [Keflex] 500 mg PO TID #20 cap Referrals: NELSY MCINTYRE [DOCTOR OF OSTEOPATH] - Forms: Patient Portal Access, Return to Work/School Quality - Quality Measures Quality Measures: N/A - Blood Pressure Screening Does Patient Have Any of the Following: No Blood Pressure Classification: Hypertensive Reading Systolic Measurement: 148 Diastolic Measurement: 101 Screening for High Blood Pressure: < First Hypertensive BP, F/U Documented > [G8950] First Hypertensive Follow-up Interventions: Follow-up with rescreen GT 1 day and LT 4 weeks. Laceration - Other - Time Out Informed consent:: Informed consent obtained Confirmed first & last name, , procedure, correct site?: Yes Start Date:: 01/30/19 Start Time:: 15:00 - Location Location of laceration:: Left, Distal Laceration located on:: Leg Length of laceration:: 8 Length of laceration:: cm Full Body: 1 - 8cm lac - Clean and Prep Laceration cleaning method:: Cleansed, Copious Irrigation, Extensive Cleaning Laceration cleaning agent:: Normal Saline, Shur Clens - Local Anesthetic Lidocaine used:: 1% with epi Lidocaine dose:: 4 mL - Medication Medicated for procedure?: Yes Medication(s) administered:: Other Medication (norco) - Procedural Detail Tissue detail:: Torn Foreign body in the wound?: No Undermining was preformed?: Yes Stent applied?: No [place] applied?: No Retention suture(s) applied?: Yes Skin suture pattern:: Interrupted Suture material/size:: 4-0: Nylon Number of skin sutures:: 15 Sub Q suture pattern:: Interrupted Suture material/size:: 4-0: Vicryl Number of sub Q sutures:: 3 Mucosal suture pattern:: Interrupted Suture material/size:: 4-0: Nylon Number of mucosal sutures:: 2 - Post Procedural Detail Complications:: No Procedure Tolerated by Patient:: Well
--- NOTE | 2019-02-01 00:16 | RADIOLOGY REPORT ---
EXAM: LOWER LEG, LEFT HISTORY: LACERATION FROM WOOD FENCE. TECHNIQUE: Two views. COMPARISON: None. FINDINGS: No bone or joint abnormality identified. No fracture. No radiopaque foreign body. IMPRESSION: 1. NO FRACTURE. 2. NO RADIOPAQUE FOREIGN BODY. JOB NUMBER: [id number] MTDD
== END 2019-01-30 17:10 | disposition home or self-care (01) ==
LOC: ER 14:06
DX: S81.812A Laceration without foreign body, left lower leg, initial encounter (principal); F17.210 Nicotine dependence, cigarettes, uncomplicated; W45.8XXA Other foreign body or object entering through skin, initial encounter; W22.09XA Striking against other stationary object, initial encounter
CPT/HCPCS: 12034; 90715; 96372; 99283; 99284